=== PATIENT | female | born 1955 | race Two or more races ===

== ENCOUNTER 2016-12-10 19:16 | Emergency (ER) | payer SELFPAY ==
[~2016-12-10] VITALS: Ht 162.6 cm; Wt 72.6 kg
--- NOTE | 2016-12-10 19:32 | NUR ---
PT UNABLE TO REMEMBER NAMES OF MEDS
[2016-12-10] MEDS ORDERED: AMOXICILLIN-CLAVUL 875-125MG TABLET PO ONE (20:00)
[2016-12-10] MEDS ORDERED: TDAP DIPH,PERTUSS,TET VAC/PF 0.5 ML DISP.SYRIN IM ONE ×2 (20:00→20:21)
[2016-12-10] MEDS ORDERED: HYDROCODONE/APAP 5-325MG TABLET PO ONE (20:00)
[2016-12-10] MEDS ORDERED: ONDANSETRON ODT 4 MG TAB.RAPDIS SL ONE (20:00)
[2016-12-10] MEDS ORDERED: AMOXICILLIN-CLAVUL 875-125MG TABLET ONE (20:21)
[2016-12-10] MEDS ORDERED: ONDANSETRON ODT 4 MG TAB.RAPDIS ONE (20:21)
[2016-12-10] MEDS ORDERED: HYDROCODONE/APAP 5-325MG TABLET ONE (20:21)
[2016-12-10] MEDS ORDERED: MISCELLANEOUS MED IM ONE (22:15)
--- NOTE | 2016-12-10 23:00 | NUR ---
Pharmacy Note: Medication brought from [facility] via hydro station operator. Pertinent paperwork in chart, patient tolerated medication administration well. Patient stated that she would like to be discharged after administration.
--- NOTE | 2016-12-10 23:26 | NUR ---
Patient discharged to home in stable conditon. Written and verbal after care instructions given. Patient verbalizes understanding of instructions.
== END 2016-12-10 23:28 | disposition home or self-care (01) ==
LOC: ER 19:18
DX: S81.851A Open bite, right lower leg, initial encounter (principal); I10 Essential (primary) hypertension; E78.00 Pure hypercholesterolemia, unspecified; W54.0XXA Bitten by dog, initial encounter; Y93.89 Activity, other specified; Y92.9 Unspecified place or not applicable; Y99.9 Unspecified external cause status
CPT/HCPCS: 90471; 90715; 96372; 99284; A4663; Q0162; J3490

== ENCOUNTER 2016-12-13 18:13 | Emergency (ER) | payer OTHER ==
[~2016-12-13] VITALS: Ht 162.6 cm; Wt 74.4 kg
--- NOTE | 2016-12-13 19:23 | NUR ---
Patient discharged to home in stable conditon. Written and verbal after care instructions given. Patient verbalizes understanding of instructions.
== END 2016-12-13 19:25 | disposition home or self-care (01) ==
LOC: ER 18:14
DX: S71.151D Open bite, right thigh, subsequent encounter (principal); I10 Essential (primary) hypertension; E78.00 Pure hypercholesterolemia, unspecified; W54.0XXD Bitten by dog, subsequent encounter
CPT/HCPCS: A4663